=== PATIENT | male | born 1975 | race Caucasian/White ===

== ENCOUNTER 2017-06-22 17:12 | Emergency (ER) | payer SELFPAY ==
[~2017-06-22] VITALS: Ht 182.9 cm; Wt 72.0 kg
[~2017-06-22 17:12] MED LIST: IBUP600 PO; TRAM50 PO
[2017-06-22 17:14] VITALS: BP 142/86; PULSE 84; RESP 16; TEMP 98.3; O2SAT 99
--- NOTE | 2017-06-22 17:24 | PD ---
HPI Chief Complaint: ENT Complaint Time Seen by Provider: 17:17 Travel History International Travel<30 days: No Contact w/Intl Traveler<30days: No Traveled to known affect area: No History of Present Illness HPI Patient comes [facility] department complaining of left ear pain ongoing for 3 days. Patient reports trying to clean his ear with peroxide as well as using earwax removal drops with no improvement of symptoms. Patient also tried taking [id number] Tylenol with no improvement. Patient reports pain seems to get worse with certain positions. Reports feelings of his ears clogged. Patient denies any radiation of pain or difficulty swallowing. Denies any known fevers. Denies any recent swimming. Denies radiation of pain. PFSH Past Medical History Medical History: Denies Significant Hx Cardiovascular Problems: No Cirrhosis: Yes (PT DENIES HAVING HAD THIS.) Diminished Hearing: No Hiatal Hernia: Yes Inguinal Hernia: Yes Immunizations Current: Yes Tetanus Vaccination: > 5 Years Influenza Vaccination: No Past Surgical History Abdominal Surgery: Yes (UMBILICAL HERNIA REPAIR) Social History Alcohol Use: Yes (RARE) Tobacco Use: Yes (1 PPD) Substance Use: No Allergies-Medications (Allergen,Severity, Reaction): Coded Allergies: No Known Allergies (Verified Adverse Reaction, Unknown, 06/22/17) Reported Meds & Prescriptions Reported Meds & Active Scripts Active No Active Prescriptions or Reported Medications Review of Systems Except as stated in HPI: all other systems reviewed are Neg Physical Exam Narrative GENERAL: Well-developed, well nourished, in no acute distress, and non-ill appearing. SKIN: Focused skin assessment warm and dry. HEAD: Atraumatic. Normocephalic. EYES: Pupils equal and round. EOMI. No scleral icterus. No injection or drainage. ENT: No nasal bleeding or discharge. Mucous membranes pink and moist. Tympanic membranes obscured by cerumen. No tenderness of the auricle or tragus. No mastoid tenderness. NECK: Trachea midline. No no cervical lymphadenopathy. Supple. No nuclear rigidity. RESPIRATORY: No accessory muscle use. No respiratory distress. MUSCULOSKELETAL: No obvious deformities. No clubbing. No cyanosis. No edema. Full range of motion. NEUROLOGICAL: Awake and alert. No obvious cranial nerve deficits. Motor grossly within normal limits. Normal speech. PSYCHIATRIC: Appropriate mood and affect; insight and judgment normal. Data Data Last Documented VS Vital Signs Date Time Temp Pulse Resp B/P (MAP) Pulse Ox O2 Delivery O2 Flow Rate FiO2 06/22/17 17:14 98.3 84 16 142/86 (104) 99 Orders Orders Ear Irrigation (06/22/17 17:20) Ed Discharge Order (06/22/17 17:50) MDM Medical Decision Making Medical Screen Exam Complete: Yes Emergency Medical Condition: Yes Differential Diagnosis Otitis media, otitis externa, otalgia, cerumen impaction Narrative Course Patient in no obvious distress upon re-evaluation. Patient reports resolution of symptoms status post irrigation and cerumen removal. Any questions/concerns in reference to patient diagnosis/condition discussed and clarified prior to patient's discharge. Reinforced sheer importance of close follow up with patient 's primary physician or primary care clinic. Instructed patient to return to ED immediately, if symptoms return/worsen. Patient showed understanding of above instructions. Further instructions and recommendations were detailed in discharge paperwork. Patient ambulated without difficulty out of ED at discharge. Procedures Procedure Narrative Verbal consent was obtained. Left ear was irrigated using peroxide and warm water along with curette to remove impacted cerumen. This alleviated patient's symptoms. Patient tolerated procedure well. There is no complications. Was performed with the assistance of home theatre technician. Diagnosis Primary Impression: Impacted cerumen of left ear Referrals: [facility] Patient Instructions: Cerumen Impaction (ED), General Instructions Additional Instructions: Follow-up with your primary care physician in 3-5 days for reevaluation. Use [id number] earwax softener as needed to prevent future earwax buildup. Follow instructions on the packaging. Return to the emergency department if symptoms get worse. Scripts No Active Prescriptions or Reported Meds Disposition: 01 DISCHARGE HOME Condition: Stable Ti Jones June 22, 2017 17:24
[2017-06-29] MEDS ORDERED: CIPR0.2S LEFT EAR (18:36)
[2017-06-29] MEDS ORDERED: AMOX500C PO (18:36)
== END 2017-06-22 18:00 | disposition home or self-care (01) ==
LOC: PHEFT 17:12
DX: H61.22 Impacted cerumen, left ear (principal); K74.60 Unspecified cirrhosis of liver; F17.200 Nicotine dependence, unspecified, uncomplicated
CPT/HCPCS: 69210

== ENCOUNTER 2017-06-29 17:54 | Emergency (ER) | payer SELFPAY | END 2017-06-29 18:44 | disposition home or self-care (01) | LOC: PHEFT 17:54 | DX: H60.92 Unspecified otitis externa, left ear (principal); F17.200 Nicotine dependence, unspecified, uncomplicated | CPT/HCPCS: 99283 ==

== ENCOUNTER 2017-07-19 09:05 | Emergency (ER) | payer SELFPAY ==
[~2017-07-19] VITALS: Ht 182.9 cm; Wt 70.0 kg
[~2017-07-19 09:05] MED LIST changes: +AMOX500C PO; +CIPR0.2S LEFT EAR; -IBUP600 PO; -TRAM50 PO
[2017-07-19 09:10] VITALS: BP 138/68; PULSE 99; RESP 16; TEMP 98.8; O2SAT 99
[2017-07-19] MEDS ORDERED: LEVA500T33 PO (09:23)
--- NOTE | 2017-07-19 09:27 | PD ---
HPI Chief Complaint: ENT Complaint Time Seen by Provider: 09:14 Travel History International Travel<30 days: No Contact w/Intl Traveler<30days: No Traveled to known affect area: No History of Present Illness HPI 42-year-old male presents emergency department status post earwax removal a little over 1 month ago, followed by visit here for what appear to be left otitis externa treated with Ciprodex and amoxicillin. That was on June 26. Patient now returns with ongoing left ear pain intermittently, and decreased hearing. Eyes fever, dental pain, swelling, or other symptoms. He states the pain is occasionally sharp at about an 8 out of 10 but it is intermittent. He denies significant drainage. He has no fever or chills. No sinus tenderness. No sore throat. No postnasal drip. No known drug allergies PFSH Past Medical History Cardiovascular Problems: No Cirrhosis: Yes (PT DENIES HAVING HAD THIS.) Diminished Hearing: No Hiatal Hernia: Yes Inguinal Hernia: Yes Immunizations Current: Yes Past Surgical History Abdominal Surgery: Yes (UMBILICAL HERNIA REPAIR) Social History Alcohol Use: Yes (RARE) Tobacco Use: Yes (1 PPD) Substance Use: No Allergies-Medications (Allergen,Severity, Reaction): Coded Allergies: No Known Allergies (Verified Adverse Reaction, Unknown, 06/29/17) Reported Meds & Prescriptions Reported Meds & Active Scripts Active Levaquin (Levofloxacin) 500 Mg Tablet 500 Mg PO DAILY 14 Days Ciprofloxacin Otic Drops 0.2% Soln 0.25 Ml LEFT EAR BID Amoxicillin 500 Mg Cap 500 Mg PO TID 10 Days Review of Systems Except as stated in HPI: all other systems reviewed are Neg General / Constitutional: No: Fever Eyes: No: Visual changes HENT: Positive: Earache, No: Headaches, Vertigo, Lightheadedness, Sore Throat, Rhinitis, Rhinorrhea, Congestion, Nosebleed, Neck Stiffness, Neck Pain, Gingival Bleeding, Dental Difficulties, Ear Discharge Cardiovascular: No: Chest Pain or Discomfort Respiratory: No: Shortness of Breath Gastrointestinal: No: Abdominal Pain Genitourinary: No: Dysuria Musculoskeletal: No: Pain Skin: No Rash Neurologic: No: Weakness Psychiatric: No: Depression Endocrine: No: Polydipsia Hematologic/Lymphatic: No: Easy Bruising Physical Exam Narrative GENERAL: Patient appears in no acute distress per SKIN: Warm and dry. HEAD: Atraumatic. Normocephalic. No swelling. No tenderness EYES: Pupils equal and round. No scleral icterus. No injection or drainage. ENT: No nasal bleeding or discharge. Mucous membranes pink and moist. Left TM is dull with small perforation at the 7 o'clock position. There is no erythema but appears to have yellowish green drainage. The ear canals normal. Right TM is normal. No sinus tenderness to palpation or percussion. Pharynx is clear. Airways patent NECK: Trachea midline. Supple and nontender without lymphadenopathy. CARDIOVASCULAR: Regular rate and rhythm. RESPIRATORY: No accessory muscle use. Clear to auscultation. Breath sounds equal bilaterally. MUSCULOSKELETAL: Extremities without clubbing, cyanosis, or edema. No obvious deformities. NEUROLOGICAL: Awake and alert. No obvious cranial nerve deficits. Motor grossly within normal limits. Five out of 5 muscle strength in the arms and legs. Normal speech. PSYCHIATRIC: Appropriate mood and affect; insight and judgment normal. Data Data Last Documented VS Vital Signs Date Time Temp Pulse Resp B/P (MAP) Pulse Ox O2 Delivery O2 Flow Rate FiO2 07/19/17 09:10 98.8 99 16 138/68 (91) 99 Orders Orders Ed Discharge Order (07/19/17 09:28) [facility] Medical Decision Making Medical Screen Exam Complete: Yes Emergency Medical Condition: Yes Medical Record Reviewed: Yes Differential Diagnosis Left otitis media. Chronic left otitis media. Mastoiditis. Sinusitis Narrative Course Patient will be treated with Levaquin 500 mg daily for the next 2 weeks Patient is to keep water out of the ear as discussed. Patient follow-up with ear nose and throat doctor if symptoms continue. Diagnosis Primary Impression: Chronic otitis media of left ear Referrals: Christian Dela Cruz MD as needed Patient Instructions: Ear Infection (ED), General Instructions Additional Instructions: Patient will be treated with Levaquin 500 mg daily for the next 2 weeks Patient is to keep water out of the ear as discussed. Patient follow-up with ear nose and throat doctor if symptoms continue. Med/Other Pt SpecificInfo: Prescription(s) given Scripts Levofloxacin (Levaquin) 500 Mg Tablet 500 MG PO DAILY for Infection for 14 Days, #14 TAB 0 Refills Prov: AguayoSamantha Rosette COATS 07/19/17 Disposition: 01 DISCHARGE HOME Condition: Stable Reggie Allen July 19, 2017 09:27
== END 2017-07-19 09:56 | disposition home or self-care (01) ==
LOC: NEPK 09:05
DX: H66.92 Otitis media, unspecified, left ear (principal); F17.200 Nicotine dependence, unspecified, uncomplicated
CPT/HCPCS: 99283